=== PATIENT | female | born 1980 | race Caucasian/White ===

== ENCOUNTER 2018-10-22 21:16 | Inpatient (IN) | payer BC ==
[2018-10-22 21:20] VITALS: BMI 26.6
[2018-10-22] MEDS: Levothyroxine 25 MCG TAB PO SCH (22:04)
--- NOTE | 2018-10-22 22:24 | OBADHP ---
Datetime: 10/22/2018 20:00 Admit Comment, IP Provider: 38 y/o female w/ hx of GDM1 and hypothyroidism at 38.3 wk GA presen ts to L_D for induction of labor due to poorly controlled glucose. She denies vaginal fluid loss/blee d. She reports having an appointment w/ Dr. Bhagat this morning; sterile vaginal exam at 9am showed clos ed cervix. Patient endorses movement. OB: Dr. Bhagat Pmhx:GDM1, hypothyroidism Homerx: Metformin 1000mg PO BID, Levothyroxine 25 mcg PO QD Famhx: Father has DM Socialhx: denies toxic habits SurgHx: denies Allergies: NKDA ROS: negative except per HPI Physical Exam: Gen: comfortable, no acute distress Heart: S1S2 present. Normal RRR Lungs: normal resp effort, clear to auscultation bilaterally Abd: gravid, soft, non-tender Extremities: no swelling/erythema/tendernss Assessment and Plan: 38 y/o female w/ hx of GDM1 and hypothyroidism at 38.3 wk GA presents to L_D for induction of labor due to poorly controlled blood glucose levels. GBS neg, HIV neg, HBsAg neg, HSV neg, Rubella immune Admit to LD CBC and type and screen ordered Metformin 1000mg PO BID. She did not take her evening dose today, will give here. Levothyroxine 25mcg PO QD Cervidil 10mg Vag x1 heart and toco monitoring Can have epidural; anesthesiology consulted Case discussed w/ attending, Dr. Jac Rebolledo, pgyi Addendum by Dr. Nathan Pelvic Type - PN: Not Done Extremities - PN: Normal Abdomen - PN: Normal Back - PN: Not Done Breast - PN: Not Done Lungs - PN: Normal Heart - PN: Normal Thyroid - PN: Not Done Neurologic - PN: Not Done HEENT - PN: Not Done General - PN: Normal Presentation-Admit: Vertex FHR - Baseline A Provider: 145 Gestation - Est Wks by US: 38.3 IP Hx Assessment: The History has been Reviewed and is Current Vital Signs Provider: Reviewed; Within Normal Limits IP Chief Complaint: Scheduled induction of labor NICHD Variability Prov Fetus A: Moderate 6-25bpm NICHD Accel Fetus A IP Provider: [id number] NICHD Decel Fetus A IP Provider: None Genitourinary Exam: Normal DTRs - PN: Not Done IP Adm Impression: Term, intrauterine ; No Active Labor IP Admit Plan: Admit to unit; Initiate labor induction protocol
[2018-10-22 22:45] LABS: BASO % 0.3 % (0.0-2.0); EOS # 0.1 K/uL (0.0-0.7); EOS % 0.6 % (0.0-4.0); HEMOGLOBIN 11.3 g/dL (12.0-16.0); LYMPH # 1.7 K/uL (1.0-4.3); LYMPH % 15.4 % (20.0-40.0); MEAN CELL VOLUME 86.9 fl (81.0-99.0); MEAN CORPUSCULAR HEMOGLOBIN 29.1 pg (27.0-31.0); MEAN CORPUSCULAR HGB CONC 33.4 g/dL (33.0-37.0); MEAN PLATELET VOLUME 7.3 fl (7.2-11.7); MONO # 0.9 K/uL (0.0-0.8); MONO % 8.5 % (0.0-10.0); NEUT # 8.4 K/uL (1.8-7.0); NEUT % 75.2 % (50.0-75.0); RBC 3.87 Mil/uL (3.80-5.20); RED CELL DISTRIBUTION WIDTH 13.7 % (11.5-14.5); WHITE BLOOD COUNT 11.2 K/uL (4.8-10.8)
[2018-10-23] MEDS ORDERED: EPINEPHrine 1 mg/ml (1:1000) Inj ONE (09:36)
[2018-10-23] MEDS ORDERED: ePHEDrine 50 mg/ml Inj ONE (09:36)
[2018-10-23] MEDS ORDERED: Morphine 1 mg/ml preservative-free Inj(Duramorph) ONE (09:36)
[2018-10-23] MEDS ORDERED: Lactated Ringer's 1,000 ML IV ONE (22:15)
[2018-10-23] MEDS ORDERED: Lactated Ringer's 1,000 ML IV SCH ×2 (22:15→22:30)
[2018-10-23] MEDS: Levothyroxine 25 MCG TAB PO SCH (22:24)
--- NOTE | 2018-10-24 01:10 | OBPN ---
Datetime: 10/23/2018 10:00 IP Progress Impression: Reassuring heart rate IP Informed Consent Obtain: Vaginal Delivery; Risks, Benefits and Alternatives Discussed IP Progress Plan: Continue present management; Cervical Ripening; Anticipate Vaginal Delivery Presentation-Admit: Vertex IP Progress Note Comment: She was admitted last nig and started on Cervidil. Wll re-examine after removal of cervidil...may continue IOL with Cytotec. her questoins answered. Continue to monitor a ccuchecks fasting/2h postpraindial FHR Category Provider Fetus A: Category I NICHD Decel Fetus A IP Provider: None Datetime: 10/22/2018 20:00 FHR - Baseline A Provider: 145 Gestation - Est Wks by US: 38.3 Vital Signs Provider: Reviewed; Within Normal Limits NICHD Accel Fetus A IP Provider: 15X15 NICHD Variability Prov Fetus A: Moderate 6-25bpm
[2018-10-24] MEDS ORDERED: Oxytocin 30 UNIT 30 UNITS/500 ML BAG IV ONE ×2 (07:51→07:54)
--- NOTE | 2018-10-24 07:53 | OBPN ---
Datetime: 10/24/2018 07:45 IP Progress Impression Other: latent phase of labor IP Progress Impression: Normal progression of labor; Reassuring heart rate IP Informed Consent Obtain: Vaginal Delivery; Risks, Benefits and Alternatives Discussed IP Progress Plan: Induction; Anesthesia consult; Anticipate Vaginal Delivery Pool Provider: Negative Membranes, Provider: Intact Contraction Comments Provider: occ Presentation-Admit: Vertex IP Progress Note Comment: She felt occ CTX last night. She was checked overnight and posterio cx/c losed. SVE 3-4cm Latent phase of labor PLAN: disucssion with pt...will start Pitocin Indcution; pain managemnt disucssed FHR Category Provider Fetus A: Category I Dilatation, Provider: 3-4 Effacement, Provider: 80 Station, Provider: -1
[2018-10-24] MEDS ORDERED: OXYTOCIN/0.9 % NS 20 UNIT/1,000 ML BAG IV SCH (08:00)
[2018-10-24] MEDS ORDERED: Oxycodone/Acetaminophen 5/325 mg Tab PO PRN ×2 (13:36)
[2018-10-24] MEDS ORDERED: Benzocaine/Menthol SPRAY TOP PRN (13:36)
[2018-10-24] MEDS ORDERED: Oxytocin 10 Units/ml Inj ONE (13:37)
[2018-10-24] MEDS ORDERED: Oxytocin 10 Units/ml Inj IM ONE (13:38)
--- NOTE | 2018-10-24 14:13 | OBDS ---
DELIVERY PERSONNEL Delivery Doctor: Kenyon Angela MD Patient'S Librarian: Venus/JMcCartyREsha MATERNAL INFORMATION Delivery Anesthesia: Local Medications in Delivery: Pitocin Estimated Blood Loss (ml): 150 Placenta Cultured: No Maternal Complications: None Provider Comments: Delivered live baby boy at 1316 the baby was bulb suctioned on the perineum and t ransferred to the maternal chest. The cord was clamped and cut 3 vessels noted cord blood was obtaine d and sent to the lab. The placenta was delivered at 1330 intact, the estimated blood loss was 150 mL . Was a first-degree vaginal laceration which was repaired with 2-0 rapide. The mother tolerated the procedure well the baby went to the well-baby nursery with Apgars of 9 and 9 LABOR SUMMARY EDC: 11/02/2018 00:00 No. Babies in Womb: 1 Attempted: No Labor Anesthesia: local LABOR INFORMATION Reason for Induction: Maternal Diabetes Complete Dilatation: 10/24/2018 12:40 Cervical Ripening Agents: Cytotec @ (Annotations: Cytotec 50mcg given PO ) Oxytocin: Induction Group B Beta Strep: Negative Antibiotics # of Doses: n/a Antibiotics Time of Last Dose: n/a Steroids Given: None Reason Steroids Not Administered: Not Applicable MEMBRANES Membranes Rupture Method: Spontaneous Rupture of Membranes: 10/24/2018 11:40 Length of Rupture (hrs): -166.40 Amniotic Fluid Color: Clear Amniotic Fluid Amount: Small Amniotic Fluid Odor: Normal STAGES OF LABOR Stage 2 hrs: -167 Stage 2 min: -24 Stage 3 hrs: 168 Stage 3 min: 14 BABY A INFORMATION Infant Delivery Date/Time: 10/17/2018 13:16 Method of Delivery: Vaginal Born in Route : No : N/A Forceps: N/A Vacuum Extraction: N/A Shoulder Dystocia : No SHOULDER DYSTOCIA BABY A Delivery Date/Time: 10/17/2018 13:16 PRESENTATION/POSITION BABY A Presentation: Cephalic Cephalic Presentation: Vertex Breech Presentation: N/A PLACENTA INFORMATION BABY A Placenta Delivery Time : 10/24/2018 13:30 Placenta Method of Delivery: Spontaneous Placenta Status: Delivered SCORES BABY A Heart Rate 1 min: >100 bpm Resp Effort 1 min: Good Cry Reflex Irritability 1 min: Cough or Sneeze or Pulls Away Muscle Tone 1 min: Active Motion Color 1 min: Body Long Point, Extremities Blue Resuscitation Effort 1 min: Tactile Stimulation SCORE 1 MIN: 9 Heart Rate 5 min: >100 bpm Resp Effort 5 min: Good Cry Reflex Irritability 5 min: Cough or Sneeze or Pulls Away Muscle Tone 5 min: Active Motion Color 5 min: Body Long Point, Extremities Blue Resuscitation Effort 5 min: N/A SCORE 5 MIN: 9 INFORMATION BABY A Gestational Age at Delivery: 38.5 Gestational Status: Term Outcome : Liveborn Condition : Stable Infant Sex: Male IDENTIFICATION/MEDS BABY A ID Band Number: [id number] ID Band Location: Left Leg; Left Arm Vitamin K Given : Not Given Erythromycin Given: Not Given WEIGHT/LENGTH BABY A Infant Birthweight (gms): 3225 Infant Weight (lb): 7 Infant Weight (oz): 2 CORD INFORMATION BABY A No. Cord Vessels: 3 Nuchal Cord : N/A Nuchal Cord Other: n/a True Knot: n/a Infant Cord pH Baby Arterial: n/a Cord pH Baby Venous: n/a Cord Blood Taken: Yes Banking/Donate Info: n/a Suction: None ASSESSMENT BABY A Infant Complications: None Physical Findings at Delivery: Within Normal Limits Infant Respirations: Appears Normal Automatic Shirring Machine Operator/ALS Called : No Care By: Venus Transferred To: Remains with Mother
[2018-10-24] MEDS ORDERED: Hepatitis B Vaccine PED 10 mcg/0.5 mL Inj IM ONE (23:00)
[2018-10-25] MEDS: Levothyroxine 25 MCG TAB PO SCH (06:32)
[2018-10-26] MEDS: Levothyroxine 25 MCG TAB PO SCH (06:28)
--- NOTE | 2018-10-26 08:21 | OBPPN ---
Datetime: 10/25/2018 08:16 PP Pain Prov: Within normal limits PP Nausea Prov: Denies PP Flatus Prov: Yes PP Breasts Prov: Normal PP Heart Prov: Normal PP Lungs Prov: Normal PP Abdomen/Uterus Prov: Normal PP Lochia Prov: Normal PP Vulva/Perineum Prov: Normal PP CVA Tenderness Prov: Normal PP Extremities Prov: Normal PP C/S Incision Prov: Not Applicable PP Progress Prov: Normal PP Comments Phys Exam Prov: Abdomen soft, nontender, nondistended Uterus firm, below umbilicus No deep calf tenderness bilaterally PP Impression Prov: Normal progression PP Plan Prov: Continue present management PP Progress Note Prov: Postoperative day 1 status post , patient recovering well Continue current management Anticipate discharge home tomorrow IP PP Procedures: None Vital Signs Provider PP: Reviewed; Within Normal Limits
--- NOTE | 2018-10-26 11:05 | OBPPN ---
Datetime: 10/26/2018 11:03 PP Pain Prov: Within normal limits PP Nausea Prov: Denies PP Flatus Prov: Yes PP BM Prov: Yes PP Breasts Prov: Normal PP Heart Prov: Normal PP Lungs Prov: Normal PP Abdomen/Uterus Prov: Normal PP Lochia Prov: Normal PP Vulva/Perineum Prov: Normal PP CVA Tenderness Prov: Normal PP Extremities Prov: Normal PP Impression Prov: Normal progression PP Plan Prov: Discharge PP Progress Note Prov: A; S/P day 2 PLAN: discahgre home and follow up in 6w
--- NOTE | 2018-10-26 11:05 | OBDCSUM ---
Datetime: 10/26/2018 08:07 Discharged to, Provider: Home Follow up at, Provider: OBGYN Disch Instr Activity: Normal activity Disch Instr Diet: Regular Discharge Instructions, Provider: Routine instructions given Discharge Diagnosis, Provider: Term Delivered Follow up in weeks, Provider: in 4 to 6 weeks. Disch Referrals: None Contraception discussed, Prov: Yes
[2018-10-26 19:41] VITALS: BP 122/68; PULSE 85; RESP 18; TEMP 97.8; O2SAT 100
== END 2018-10-26 13:40 | disposition home or self-care (01) | DRG 807 ==
LOC: H.L&D 21:21 → EDBD 21:21 → H.OB/GYN 10-24 16:00
PROVIDERS: ADMIT Obstetrics & Gynecology; ATTEND Obstetrics & Gynecology
PROC: 4A1HXCZ Monitoring of Products of Conception, Cardiac Rate, External Approach (ICD-10-PCS; 2018-10-22)
PROC: 10E0XZZ Delivery of Products of Conception, External Approach (ICD-10-PCS; principal; 2018-10-24)
PROC: 0HQ9XZZ Repair Perineum Skin, External Approach (ICD-10-PCS; 2018-10-24)
DX: O24.429 Gestational diabetes mellitus in childbirth, unspecified control (principal); Z37.0 Single live birth; Z3A.38 38 weeks gestation of pregnancy; O70.0 First degree perineal laceration during delivery; E03.9 Hypothyroidism, unspecified